=== PATIENT | male | born 1970 | race Hispanic/Latino ===

== ENCOUNTER → 2019-02-12 | Outpatient (CLI) | payer OTHER ==
--- NOTE | 2019-02-12 12:13 | Diagnostic Imaging Report ---
EXAMINATION: HAND 3+ VIEWS LEFT INDICATION: Left hand pain COMPARISON: None FINDINGS: No acute fracture or dislocation. Alignment is anatomic. No substantial degenerative change. The soft tissues appear unremarkable. IMPRESSION: No acute osseous injury. Signed by: Mara Currie MD on 02/12/2019 12:09 PM
== END ==
LOC: RAD 10:33
PROVIDERS: ATTEND Family Medicine
DX: M79.642 Pain in left hand (principal)